=== PATIENT | female | born 1960 | race Caucasian/White ===

== ENCOUNTER 2017-06-05 08:30 | Inpatient (IN) | payer OTHER, MEDICAID ==
[~2017-06-05] VITALS: Ht 160 cm; Wt 56.2 kg
[2017-06-05 08:30] VITALS: BP_SYST 120
[~2017-06-05 08:30] MED LIST: ALBU8.5H8 INH; ALPR0.2583 PO; ASPI81TA2 PO; DIAZ2TAB3 PO; DIPH25CA83 PO; DOCU-144 PO; GABA-531 PO; INSU100V11 SQ; LORA10TA7 PO; MULT-1117 PO; OMEP20CA10 PO; PRAV10TA PO; QUET400T PO; SERT50TA12 PO; SSNOVOLOG SUBCUT; TRAM1TAB PO
[2017-06-05] MEDS ORDERED: DEXTROSE 50% JECT 50 ML DISP.SYRIN ONE ×2 (08:37→09:40)
[2017-06-05 09:00] LABS: CALCIUM 9.9 mg/dL (8.4-11.0); CREATININE 0.62 mg/dL (0.55-1.30); POTASSIUM 3.4 mmol/L (3.5-5.1)
[2017-06-05 09:01] LABS: BASOPHILS % (AUTO) 0.5 % (0.0-2.0); EOSINOPHILS # (AUTO) 0.8 K/uL (0.0-0.4); EOSINOPHILS % (AUTO) 8.2 % (0.0-4.0); HEMATOCRIT 38.7 % (36-48); HEMOGLOBIN 12.8 g/dL (12.0-16.0); MEAN CORPUSCULAR HEMOGLOBIN 26 pg (27-31); MEAN CORPUSCULAR HGB CONC 33 % (32-36); MEAN CORPUSCULAR VOLUME 79 fL (79.0-98.0); MONOCYTES # (AUTO) 0.7 K/uL (0.0-1.0); MONOCYTES % (AUTO) 6.8 % (1.7-9.3); NEUTROPHILS # (AUTO) 5.3 K/uL (1.8-7.7); NEUTROPHILS % (AUTO) 53.5 % (40.0-70.0); PLATELET COUNT (AUTO) 431 K/uL (130-430); RED CELL DISTRIBUTION WIDTH 15.4 % (9.0-15.0); WHITE BLOOD COUNT (AUTO) 9.8 K/uL (4.8-10.8)
[2017-06-05 09:05] LABS: ALBUMIN 4.3 g/dL (3.4-4.8); PROTHROMBIN TIME 9.9 SECS (9.5-12.5); TOTAL BILIRUBIN 0.3 mg/dL (0.0-1.0)
[2017-06-05] MEDS ORDERED: D5/0.45 NS 1,000 ML IV ONE (10:45)
[2017-06-05] MEDS ORDERED: DEXTROSE 50% JECT 50 ML DISP.SYRIN IVP PRN ×2 (11:00)
[2017-06-05] MEDS ORDERED: D5/0.45 NS 1,000 ML IV SCH ×2 (11:00→20:30)
[2017-06-05 12:05] VITALS: BP_SYST 124
[2017-06-05] MEDS ORDERED: FLU VACC QS 2017-18(36MOS+)/PF 0.5 ML/SYR SYRINGE I.M. PRN (12:30)
[2017-06-05] MEDS ORDERED: DIPHENHYDRAMINE HCL 25 MG CAPSULE PO PRN (14:00)
[2017-06-05] MEDS ORDERED: traMADol HCL HCL 50 MG TABLET (ULTRAM) PO PRN (14:45)
[2017-06-05] MEDS ORDERED: ALBUTEROL SULFATE 0.083% 2.5 MG/3 ML VIAL.NEB INH PRN (14:45)
[2017-06-05] MEDS ORDERED: SIMVASTATIN 20 MG TABLET PO SCH (18:00)
[2017-06-05 18:03] VITALS: BP_SYST 124
[2017-06-05] MEDS: INSULIN REGULAR, HUMAN 100 UNITS/ML, 10 ML VIAL (novoLIN R) SUBCUT PRN (18:51)
[2017-06-05 20:00] VITALS: BP_SYST 132
[2017-06-05] MEDS ORDERED: ONDANSETRON HCL 4 MG/2 ML VIAL IVP PRN (20:30)
[2017-06-05] MEDS ORDERED: ALPRAZolam 0.25 MG TABLET PO PRN (21:00)
[2017-06-05] MEDS ORDERED: QUEtiapine FUMARATE 100 MG TABLET PO SCH (21:00)
[2017-06-05] MEDS: DOCUSATE SODIUM 100 MG CAPSULE PO SCH (21:38)
[2017-06-05] MEDS: GABAPENTIN 300 MG CAPSULE PO SCH (21:39)
[2017-06-05] MEDS: DIAZEPAM 2 MG TABLET (VALIUM) PO SCH (21:39)
[2017-06-06 01:12] VITALS: BP_SYST 86
[2017-06-06] MEDS: INSULIN REGULAR, HUMAN 100 UNITS/ML, 10 ML VIAL (novoLIN R) SUBCUT PRN (03:09)
[2017-06-06 04:47] VITALS: BP_SYST 90
[2017-06-06 08:22] VITALS: BP_SYST 129
[2017-06-06] MEDS: GABAPENTIN 300 MG CAPSULE PO SCH (08:23)
[2017-06-06] MEDS: DOCUSATE SODIUM 100 MG CAPSULE PO SCH (08:23)
[2017-06-06] MEDS: DIAZEPAM 2 MG TABLET (VALIUM) PO SCH (08:24)
[2017-06-06] MEDS ORDERED: ASPIRIN 81 MG TAB.CHEW PO SCH (09:00)
[2017-06-06] MEDS ORDERED: MULTIVITAMINS TAB 1 TABLET PO SCH (09:00)
[2017-06-06] MEDS ORDERED: SERTRALINE HCL 50 MG TABLET PO SCH (09:00)
[2017-06-06] MEDS ORDERED: PANTOPRAZOLE SODIUM 40 MG/VIAL (PROTONIX) IVP SCH (09:00)
[2017-06-06] MEDS ORDERED: OMEPRAZOLE 20 MG CAPSULE.DR (PriLOSEC) PO SCH (09:00)
[2017-06-06] MEDS ORDERED: PRAVASTATIN SODIUM 10 MG TABLET (PRAVACHOL) PO SCH (09:00)
[2017-06-06 10:26] VITALS: BP_SYST 126
== END 2017-06-06 11:00 | disposition home or self-care (01) | DRG 639 ==
LOC: SED 08:30 → STU 10:52
PROVIDERS: ATTEND Internal Medicine Hospice and Palliative Medicine
DX: E10.649 Type 1 diabetes mellitus with hypoglycemia without coma (principal); E78.00 Pure hypercholesterolemia, unspecified; F41.9 Anxiety disorder, unspecified; J45.909 Unspecified asthma, uncomplicated; Z79.4 Long term (current) use of insulin; Z79.899 Other long term (current) drug therapy
CPT/HCPCS: 36415; 71010; 76700-TC; 80053; 82962; 83036; 84484; 85025; 85610-TC; 85730-TC; 93005; 94640; 94760; 99285; C9113; J1815; J2405; J7042; Q2037